=== PATIENT | male | born 1950 | race African-American/Black ===

== ENCOUNTER 2018-08-16 14:25 | Emergency (ER) | payer OTHER, MEDICAID ==
[~2018-08-16] VITALS: Ht 172.7 cm; Wt 92.0 kg
[~2018-08-16 14:25] MED LIST: ATOR20TA65 PO; CARV6.2548 PO; FURO20TA4 PO; LOSA25TA26 PO; TAMS0.4C31 PO; WARF4TAB40 PO
[2018-08-16] MEDS ORDERED: FUROSEMIDE 40MG/4ML VIAL IVP ONE (16:00)
[2018-08-16 16:05] LABS: BASOPHILS % 0.9 % (0.0-2.0); EOSINOPHILS % 0.7 % (0.0-5.0); HEMATOCRIT. 44.6 % (42.0-52.0); HEMOGLOBIN. 14.3 g/dL (14.0-18.0); LYMPHOCYTES % 21.2 % (20.0-50.0); MEAN CORPUSCULAR HEMOGLOBIN 25.3 pg (28.0-32.0); MEAN CORPUSCULAR VOLUME 79.2 fL (80.0-94.0); MEAN PLATELET VOLUME 8.9 fl (7.4-10.4); MONOCYTES % 12.1 % (2.0-8.0); NEUTROPHILS % 65.1 % (40.0-76.0); PLATELET 171 x1000/uL (130-400); RED BLOOD CELL COUNT 5.63 mill/uL (4.7-6.1); RED CELL DISTRIBUTION WIDTH 21.7 % (11.6-14.6)
[2018-08-16 16:08] LABS: CHLORIDE 99 mEq/L (98-107)
[2018-08-16 19:02] VITALS: BP 101/80
== END 2018-08-16 19:20 | disposition short-term general hospital (02) ==
LOC: ER 14:25 → EDBEDREQ 15:55 → ER 19:20 → CANBEDREQ 19:43
DX: I11.0 Hypertensive heart disease with heart failure (principal); I50.9 Heart failure, unspecified; I48.91 Unspecified atrial fibrillation; Z79.899 Other long term (current) drug therapy
CPT/HCPCS: 36415; 71045; 80053; 83880; 84484; 85025; 93005; 96374; 99285; J1940